=== PATIENT | female | born 1950 | race Caucasian/White ===

== ENCOUNTER 2020-12-13 13:15 | Inpatient (IN) | payer OTHER, SELFPAY ==
[~2020-12-13] VITALS: Ht 170.2 cm; Wt 117.9 kg
[2020-12-13 13:21] VITALS: BP 138/62
[2020-12-13 14:25] LABS: BASOPHILS # (AUTO) 0.1 K/uL (0.00-0.22); BASOPHILS % (AUTO) 0.7 % (0.0-2.0); EOSINOPHILS # (AUTO) 0.4 K/uL (0-0.4); EOSINOPHILS % (AUTO) 4.5 % (0.0-4.0); HEMOGLOBIN 9.8 g/dL (12.0-16.0); LYMPHOCYTES # (AUTO) 2.2 K/uL (2.5-16.5); LYMPHOCYTES % (AUTO) 28.3 % (20.5-51.1); MEAN CORPUSCULAR HEMOGLOBIN 28 pg (27-31); MEAN CORPUSCULAR HGB CONC 32 g/dL (33-37); MEAN CORPUSCULAR VOLUME 87.2 fL (80-94); MONOCYTES # (AUTO) 0.7 K/uL (0.8-1.0); MONOCYTES % (AUTO) 9.5 % (1.7-9.3); NEUTROPHILS # (AUTO) 4.5 K/uL (1.8-7.7); PLATELET COUNT (AUTO) 326 K/uL (140-450); RED BLOOD CELL COUNT(AUTO) 3.55 MIL/uL (4.20-5.40); RED CELL DISTRIBUTION WIDTH 17.1 % (11.6-13.7); WHITE BLOOD COUNT (AUTO) 7.8 K/uL (4.8-10.8)
[2020-12-13 14:54] LABS: ALBUMIN 3.1 g/dL (3.4-5.0); ANION GAP 13.9 (8-16); CARBON DIOXIDE 25.8 mmol/L (21-32); POTASSIUM 5.7 mmol/L (3.5-5.1); TOTAL BILIRUBIN 0.3 mg/dL (0.0-1.0)
[2020-12-13] MEDS ORDERED: ASPIRIN 325 MG TAB PO ONE (15:00)
[2020-12-13] MEDS ORDERED: LOVENOX 1MG/KG Q12H SUBQ SCH (15:00)
[2020-12-13 15:04] LABS: FREE T4 (FREE THYROXINE) 0.72 ng/dL (0.76-1.46); THYROID STIMULATING HORMONE 2.13 uIU/mL (0.34-3.74)
[2020-12-13 15:18] LABS: PROTHROMBIN TIME 9.6 secs (10.8-13.4)
[2020-12-13] MEDS ORDERED: ACETAMINOPHEN EXTRA STRENGTH 500 MG TAB PO ONE (15:25)
[2020-12-13] MEDS ORDERED: ENOXAPARIN 120 MG/0.8 ML SYR SUBQ ONE (15:43)
[2020-12-13] MEDS: NACL 0.9% 1,000 ML IV SCH (16:40)
[2020-12-13] MEDS ORDERED: OMEP20EC11 PO (17:27)
[2020-12-13] MEDS ORDERED: ASPI-1822 PO (17:27)
[2020-12-13] MEDS ORDERED: MELA10CA PO (17:27)
[2020-12-13] MEDS ORDERED: ESCI10TA PO (17:27)
[2020-12-13] MEDS ORDERED: PRON INH (17:27)
[2020-12-13] MEDS ORDERED: DOCU-299 PO (17:27)
[2020-12-13] MEDS ORDERED: ATRN INH (17:27)
[2020-12-13] MEDS ORDERED: BISA5TAB79 PO (17:27)
[2020-12-13] MEDS ORDERED: ACET-2619 PO (17:27)
[2020-12-13] MEDS ORDERED: NAPR-54 PO (17:27)
[2020-12-13] MEDS ORDERED: NICO1PAT16 TP (17:27)
[2020-12-13] MEDS ORDERED: TRAM50TA1 PO (17:27)
[2020-12-13] MEDS ORDERED: FAMO-90 PO (17:27)
[2020-12-13] MEDS ORDERED: APR10 PO (17:27)
[2020-12-13] MEDS ORDERED: VOL25 PO (17:27)
[2020-12-13] MEDS ORDERED: LID5T TP (17:27)
[2020-12-13] MEDS ORDERED: GABA100C PO (17:27)
[2020-12-13] MEDS ORDERED: BEN50 PO (17:27)
[2020-12-13] MEDS ORDERED: CHOL500040 PO (17:27)
[2020-12-13] MEDS ORDERED: FLONAS NS (17:27)
[2020-12-13] MEDS ORDERED: MIRABULK PO (17:27)
[2020-12-13] MEDS ORDERED: guaiFENesin DM 200/20 MG-10 ML 10 ML UDC PO PRN (18:25)
[2020-12-13] MEDS ORDERED: POTASSIUM CHLORIDE 10 MEQ TABER PO PRN (18:25)
[2020-12-13] MEDS ORDERED: ONDANSETRON 4 MG/2 ML VIAL IM/IVP PRN (18:25)
[2020-12-13] MEDS ORDERED: DOCUSATE SODIUM 100 MG GELCAP PO PRN (18:25)
[2020-12-13] MEDS ORDERED: NITROGLYCERIN 0.4 MG TAB SL PRN (18:30)
[2020-12-13 18:47] LABS: CHOL/HDL RATIO 2.9 (1-4.5); FREE T4 (FREE THYROXINE) 0.72 ng/dL (0.76-1.46); MAGNESIUM 2.1 mg/dL (1.8-2.4); PHOSPHORUS 3.9 mg/dL (2.5-4.9)
[2020-12-13] MEDS: METOPROLOL 25 MG TAB PO SCH (21:00)
[2020-12-13] MEDS: HYDROcodone/APAP 7.5/325 MG 1 TAB PO PRN (21:19)
[2020-12-13] MEDS: ASPIRIN 81 MG TAB.CHEW PO SCH (21:19)
[2020-12-13] MEDS: ZOLPIDEM 5 MG TAB PO PRN (22:24)
[2020-12-14] VITALS: BP 129/78
[2020-12-14] MEDS: HYDROcodone/APAP 7.5/325 MG 1 TAB PO PRN ×4 (03:34→22:10)
[2020-12-14 04:00] VITALS: BP 120/74
[2020-12-14 06:26] LABS: BASOPHILS % (AUTO) 0.6 % (0.0-2.0); EOSINOPHILS # (AUTO) 0.4 K/uL (0-0.4); EOSINOPHILS % (AUTO) 4.9 % (0.0-4.0); HEMATOCRIT 29.8 % (36-48); HEMOGLOBIN 9.6 g/dL (12.0-16.0); LYMPHOCYTES % (AUTO) 27.1 % (20.5-51.1); MEAN CORPUSCULAR HEMOGLOBIN 28 pg (27-31); MEAN CORPUSCULAR HGB CONC 32 g/dL (33-37); MEAN CORPUSCULAR VOLUME 87.4 fL (80-94); MONOCYTES # (AUTO) 0.6 K/uL (0.8-1.0); MONOCYTES % (AUTO) 7.8 % (1.7-9.3); NEUTROPHILS # (AUTO) 4.4 K/uL (1.8-7.7); NEUTROPHILS % (AUTO) 59.6 % (42.2-75.2); PLATELET COUNT (AUTO) 322 K/uL (140-450); RED BLOOD CELL COUNT(AUTO) 3.41 MIL/uL (4.20-5.40); RED CELL DISTRIBUTION WIDTH 17.1 % (11.6-13.7); WHITE BLOOD COUNT (AUTO) 7.3 K/uL (4.8-10.8)
[2020-12-14 06:37] LABS: ANION GAP 12.1 (8-16); CARBON DIOXIDE 25.3 mmol/L (21-32); CREATININE 0.7 mg/dL (0.6-1.3); POTASSIUM 4.4 mmol/L (3.5-5.1)
[2020-12-14 08:00] VITALS: BP 146/85
[2020-12-14] MEDS: hydrALAZINE 25 MG TAB PO SCH ×3 (09:20→17:17)
[2020-12-14] MEDS: GABAPENTIN 100 MG CAP PO SCH ×3 (09:20→17:17)
[2020-12-14] MEDS: PANTOPRAZOLE 40 MG TABEC PO SCH (09:20)
[2020-12-14] MEDS: NACL 0.9% 1,000 ML IV SCH (09:22)
[2020-12-14] MEDS: ESCITALOPRAM 20 MG TAB PO SCH (09:22)
[2020-12-14] MEDS: ASPIRIN 81 MG TAB.CHEW PO SCH ×2 (09:22→20:10)
[2020-12-14] MEDS: METOPROLOL 25 MG TAB PO SCH ×2 (09:30→20:08)
[2020-12-14] MEDS ORDERED: CRUSHER, PILL MC ONE (09:30)
[2020-12-14] MEDS ORDERED: LIDOCAINE OINTMENT 5% 35 GM TUBE TP SCH (10:25)
[2020-12-14 12:00] VITALS: BP 128/70
[2020-12-14 13:50] LABS: APPEARANCE,URINE CLEAR (CLEAR); BILIRUBIN,URINE NEGATIVE (NEGATIVE); BLOOD, URINE NEGATIVE (NEGATIVE); COLOR,URINE YELLOW (YELLOW); LEUKOCYTE ESTERASE ,URINE NEGATIVE (NEGATIVE); NITRITE, URINE NEGATIVE (NEGATIVE); UGLUCOSE NEGATIVE (NEGATIVE)
[2020-12-14 16:00] VITALS: BP 136/84
[2020-12-14] MEDS ORDERED: ATORVASTATIN 20 MG TAB PO SCH (17:00)
[2020-12-14 20:00] VITALS: BP 106/71
[2020-12-14] MEDS: ACETAMINOPHEN 325 MG TAB PO PRN (20:11)
[2020-12-14] MEDS: ZOLPIDEM 5 MG TAB PO PRN (22:10)
[2020-12-15] VITALS: BP 115/63
[2020-12-15] MEDS: NACL 0.9% 1,000 ML IV SCH ×2 (01:50→17:28)
[2020-12-15 04:00] VITALS: BP 160/90
[2020-12-15 06:48] LABS: BASOPHILS # (AUTO) 0.1 K/uL (0.00-0.22); EOSINOPHILS # (AUTO) 0.4 K/uL (0-0.4); EOSINOPHILS % (AUTO) 4.8 % (0.0-4.0); HEMATOCRIT 30.6 % (36-48); HEMOGLOBIN 9.9 g/dL (12.0-16.0); LYMPHOCYTES # (AUTO) 2.2 K/uL (2.5-16.5); LYMPHOCYTES % (AUTO) 28.9 % (20.5-51.1); MEAN CORPUSCULAR HEMOGLOBIN 28 pg (27-31); MEAN CORPUSCULAR HGB CONC 32 g/dL (33-37); MEAN CORPUSCULAR VOLUME 87.2 fL (80-94); MONOCYTES # (AUTO) 0.7 K/uL (0.8-1.0); MONOCYTES % (AUTO) 8.7 % (1.7-9.3); NEUTROPHILS # (AUTO) 4.3 K/uL (1.8-7.7); NEUTROPHILS % (AUTO) 56.6 % (42.2-75.2); PLATELET COUNT (AUTO) 320 K/uL (140-450); RED BLOOD CELL COUNT(AUTO) 3.51 MIL/uL (4.20-5.40); RED CELL DISTRIBUTION WIDTH 17.1 % (11.6-13.7); WHITE BLOOD COUNT (AUTO) 7.7 K/uL (4.8-10.8)
[2020-12-15 06:55] LABS: ANION GAP 13.3 (8-16); CARBON DIOXIDE 24.1 mmol/L (21-32); CREATININE 0.7 mg/dL (0.6-1.3); POTASSIUM 4.4 mmol/L (3.5-5.1)
[2020-12-15] MEDS: HYDROcodone/APAP 7.5/325 MG 1 TAB PO PRN ×4 (06:56→20:34)
[2020-12-15 08:00] VITALS: BP 129/77
[2020-12-15] MEDS: METOPROLOL 25 MG TAB PO SCH ×2 (08:14→20:36)
[2020-12-15] MEDS: GABAPENTIN 100 MG CAP PO SCH ×3 (08:14→16:12)
[2020-12-15] MEDS: ESCITALOPRAM 20 MG TAB PO SCH (08:15)
[2020-12-15] MEDS: PANTOPRAZOLE 40 MG TABEC PO SCH (08:15)
[2020-12-15] MEDS: hydrALAZINE 25 MG TAB PO SCH ×3 (08:15→16:13)
[2020-12-15] MEDS: ASPIRIN 81 MG TAB.CHEW PO SCH ×2 (08:16→20:35)
[2020-12-15] MEDS: ACETAMINOPHEN 325 MG TAB PO PRN ×3 (08:25→20:01)
[2020-12-15 12:00] VITALS: BP 150/82
[2020-12-15 16:00] VITALS: BP 153/77
[2020-12-15] MEDS: ATORVASTATIN 20 MG TAB PO SCH (16:13)
[2020-12-15 20:00] VITALS: BP 137/92
[2020-12-15] MEDS: ZOLPIDEM 5 MG TAB PO PRN (22:02)
[2020-12-16] MEDS: HYDROcodone/APAP 7.5/325 MG 1 TAB PO PRN ×4 (01:36→14:38)
[2020-12-16 03:00] VITALS: BP 129/88
[2020-12-16 07:34] LABS: BASOPHILS # (AUTO) 0.1 K/uL (0.00-0.22); BASOPHILS % (AUTO) 1.1 % (0.0-2.0); EOSINOPHILS # (AUTO) 0.3 K/uL (0-0.4); EOSINOPHILS % (AUTO) 4.2 % (0.0-4.0); HEMATOCRIT 33.8 % (36-48); HEMOGLOBIN 10.5 g/dL (12.0-16.0); LYMPHOCYTES # (AUTO) 2.5 K/uL (2.5-16.5); LYMPHOCYTES % (AUTO) 32.6 % (20.5-51.1); MEAN CORPUSCULAR HEMOGLOBIN 27 pg (27-31); MEAN CORPUSCULAR HGB CONC 31 g/dL (33-37); MEAN CORPUSCULAR VOLUME 88.2 fL (80-94); MONOCYTES # (AUTO) 0.6 K/uL (0.8-1.0); MONOCYTES % (AUTO) 7.2 % (1.7-9.3); NEUTROPHILS # (AUTO) 4.3 K/uL (1.8-7.7); NEUTROPHILS % (AUTO) 54.9 % (42.2-75.2); PLATELET COUNT (AUTO) 347 K/uL (140-450); RED BLOOD CELL COUNT(AUTO) 3.83 MIL/uL (4.20-5.40); WHITE BLOOD COUNT (AUTO) 7.8 K/uL (4.8-10.8)
[2020-12-16 08:00] VITALS: BP_SYST 137; BP_SYST 142; BP_DIAS 73; BP_DIAS 92
[2020-12-16 08:08] LABS: ANION GAP 13.3 (8-16); CARBON DIOXIDE 23.3 mmol/L (21-32); CREATININE 0.7 mg/dL (0.6-1.3); POTASSIUM 4.6 mmol/L (3.5-5.1)
[2020-12-16] MEDS: ASPIRIN 81 MG TAB.CHEW PO SCH (09:45)
[2020-12-16] MEDS: METOPROLOL 25 MG TAB PO SCH (09:46)
[2020-12-16] MEDS: GABAPENTIN 100 MG CAP PO SCH ×3 (09:46→16:54)
[2020-12-16] MEDS: PANTOPRAZOLE 40 MG TABEC PO SCH (09:46)
[2020-12-16] MEDS: hydrALAZINE 25 MG TAB PO SCH ×3 (09:47→16:55)
[2020-12-16] MEDS: ESCITALOPRAM 20 MG TAB PO SCH (09:47)
[2020-12-16] MEDS: NACL 0.9% 1,000 ML IV SCH (11:10)
[2020-12-16 12:00] VITALS: BP 162/90
[2020-12-16] MEDS ORDERED: ASPI-1205 PO (12:31)
[2020-12-16] MEDS ORDERED: ATOR20TA40 PO (12:31)
[2020-12-16] MEDS ORDERED: METO25TA PO (12:43)
[2020-12-16 14:42] VITALS: BP 111/74
[2020-12-16 15:06] VITALS: BP 111/74
[2020-12-16] MEDS ORDERED: PNEUMOCOCCAL VACCINE 23 MCG/0.5 ML VIAL IMVAC ONE (15:30)
[2020-12-16 16:00] VITALS: BP 149/89
[2020-12-16] MEDS: ATORVASTATIN 20 MG TAB PO SCH (16:55)
[2020-12-16] MEDS: ACETAMINOPHEN 325 MG TAB PO PRN (18:21)
== END 2020-12-16 18:45 | DRG 281 ==
LOC: MED 13:15 → MTU 16:37
PROVIDERS: ADMIT Family Medicine; ATTEND Family Medicine
DX: I50.33 Acute on chronic diastolic (congestive) heart failure (principal); I21.A1 Myocardial infarction type 2; Z68.41 Body mass index [BMI] 40.0-44.9, adult; R07.9 Chest pain, unspecified; I10 Essential (primary) hypertension; E78.5 Hyperlipidemia, unspecified; D63.8 Anemia in other chronic diseases classified elsewhere; E87.8 Other disorders of electrolyte and fluid balance, not elsewhere classified; E66.9 Obesity, unspecified; K21.9 Gastro-esophageal reflux disease without esophagitis; I36.1 Nonrheumatic tricuspid (valve) insufficiency; Z20.822 Contact with and (suspected) exposure to COVID-19; Z79.899 Other long term (current) drug therapy; Z79.1 Long term (current) use of non-steroidal anti-inflammatories (NSAID); Z79.82 Long term (current) use of aspirin
CPT/HCPCS: 36415; 71045; 80048; 80053; 81003; 82150; 83036; 83690; 83735; 83880; 84100; 84439; 84443; 84479; 84484; 85025; 85610; 85730; 87081; 90732; 93005; 96360; 96361; 96372; 99291; J1644; J1650; Q0092

== ENCOUNTER 2021-06-11 12:46 | Emergency (ER) | payer MEDICARE, OTHER ==
[~2021-06-11] VITALS: Ht 167.6 cm; Wt 111.1 kg
[2021-06-11 12:46] VITALS: BP 130/86
[~2021-06-11 12:46] MED LIST: ACET-2619 PO; APR10 PO; ASPI-1205 PO; ASPI-1822 PO; ATOR20TA40 PO; ATRN INH; BEN50 PO; BISA5TAB79 PO; CHOL500040 PO; DOCU-299 PO; ESCI10TA PO; FAMO-90 PO; FLONAS NS; GABA100C PO; LID5T TP; MELA10CA PO; METO25TA PO; MIRABULK PO; NAPR-54 PO; NICO1PAT16 TP; OMEP20EC11 PO; PRON INH; TRAM50TA1 PO; VOL25 PO
--- NOTE | 2021-06-11 12:51 | NUR ---
BIBA to bed 11.
--- NOTE | 2021-06-11 13:01 | NUR ---
WEN Waddell is evaluating pt at bedside
--- NOTE | 2021-06-11 13:05 | NUR ---
71 y/o F BIBA from home c/o L arm pain x 1 day. Patient A&Ox4, ambulating via wheelchair, states 6/10, stabbing/intermittent, radiating to L elbow. Pt states pain worsens with movement and alleviates with rest/medication. States repetitive use of upper body to get in/out of wheelchair caused pain, recommended for ER evaluation by PCP. Denies fall/injury. Beng[place], Salonpas, Tylenol today with minor relief to pain. +PMSC to left elbow/left hand; no deformities/bruising/swelling noted. Pt placed onto environmental monitoring technician with HR 112. Bed locked in lowest position, side rails x 2 for pt safety. PMH: arthritis Meds: gabapentin, bisacodyl NKDA
--- NOTE | 2021-06-11 13:30 | NUR ---
Caregiver at bedside with patient's wheelchair.
--- NOTE | 2021-06-11 13:50 | NUR ---
WEN Waddell is reevaluating patient at bedside
[2021-06-11] MEDS ORDERED: HYDROcodone/APAP 5/325 MG 1 TAB TAB PO ONE (13:55)
[2021-06-11] MEDS ORDERED: ACET-8386 PO ×2 (13:57→13:59)
[2021-06-11] MEDS ORDERED: DICL20GE TP (13:57)
--- NOTE | 2021-06-11 14:05 | NUR ---
Patient pending discharge, provided with insurance card for transportation. mechanical maintenance technician contacting at this time to schedule transportation back home.
--- NOTE | 2021-06-11 14:43 | NUR ---
Transportation company advised 3 hours. Patient and caregiver made aware.
--- NOTE | 2021-06-11 15:14 | NUR ---
PER PT RECEIVED [facility] THAT [facility] [employer] WILL BE HERE AT [id number]
[2021-06-11 15:47] VITALS: BP 142/85
--- NOTE | 2021-06-11 15:51 | NUR ---
Patient discharged with v/s stable. Written and verbal after care instructions given and explained. Patient alert, oriented and verbalized understanding of instructions. Wheel Chair Assisted with to car. All questions addressed prior to discharge. ID band removed. Patient advised to follow up with PMD. Rx of HYDROCODONE/ACETAMINOPHEN, DICLOFENAC given. Patient educated on indication of medication including possible reaction and side effects. Opportunity to ask questions provided and answered.
== END 2021-06-11 15:45 | disposition home or self-care (01) ==
LOC: MED 12:46
DX: D17.79 Benign lipomatous neoplasm of other sites (principal); M79.602 Pain in left arm; I10 Essential (primary) hypertension; Z79.899 Other long term (current) drug therapy; Z79.82 Long term (current) use of aspirin
CPT/HCPCS: 99283